=== PATIENT | male | born 1965 | race Native Hawaiian/Other Pacific Islander ===

== ENCOUNTER 2020-04-05 10:06 | Inpatient (IN) | payer BC ==
[~2020-04-05] VITALS: Ht 182.9 cm; Wt 123.3 kg
[2020-04-05] MEDS ORDERED: SODIUM CHLORIDE 0.9% 1,000 ML IV ONE ×2 (10:12)
[2020-04-05 10:37] LABS: Basophils # (auto) 0.1 10 ^3/uL (0-0.2); Basophils % (auto) 0.9 % (0.0-2.0); Eosinophils # (auto) 0.1 10 ^3/uL (0-0.8); Eosinophils % (auto) 2.2 % (0.0-7.0); Hematocrit 44.9 % (41.0-53.0); Hemoglobin 14.9 g/dL (13.5-17.5); Lymphocytes # (auto) 1.2 10 ^3/uL (0.4-5.4); Lymphocytes % (auto) 20.7 % (10.0-50.0); Mean Corpuscular Hemoglobin 29.9 pg (28.0-32.0); Mean Corpuscular Hgb Conc. 33.3 g/dL (32.0-36.0); Mean Corpuscular Volume 89.8 fL (80.0-100.0); Monocytes # (auto) 0.3 10 ^3/uL (0-1.3); Monocytes % (auto) 5.5 % (0.0-12.0); Neutrophils # (auto) 4.1 10 ^3/uL (1.6-8.6); Neutrophils % (auto) 70.7 % (37.0-80.0); Nucleated Red Blood Cells % 0.2 %; Platelet Count (auto) 180 10^3/uL (140-450); White Blood Cell 5.8 10^3/uL (4.4-10.8)
[2020-04-05 10:54] LABS: INR 1.07 (0.9-1.15); Partial Thromboplastin Time 24.8 sec (23.64-32.05)
[2020-04-05 10:59] LABS: Albumin 3.7 g/dL (3.4-5.0); Anion Gap 5 (5-15); Blood Urea Nitrogen 17 mg/dL (7-18); Calcium 8.7 mg/dL (8.5-10.1); Carbon Dioxide 23 mmol/L (21-32); Chloride 111 mmol/L (98-107); Glucose 130 mg/dL (74-106); Sodium 139 mmol/L (136-145)
[2020-04-05 11:05] LABS: Alanine Aminotransferase 32 U/L (16-61); Alkaline Phosphatase 81 U/L (45-117); Aspartate Aminotransferase 13 U/L (15-37); BUN/Creatinine Ratio 17.9; Bilirubin, Total 0.6 mg/dL (0.2-1.0); GFR African American 106 mL/min; GFR Non-African American 87 mL/min
[2020-04-05] MEDS ORDERED: ONDANSETRON HCL 4 MG/2 ML VIAL IV PRN (14:00)
[2020-04-05] MEDS ORDERED: NITROGLYCERIN 0.4 MG SL TAB SL PRN (14:00)
[2020-04-05] MEDS ORDERED: MORPHINE SULF INJ 2 MG/ML SYRINGE 1ML IV PRN ×2 (14:00)
[2020-04-05] MEDS ORDERED: ACETAMINOPHEN 500 MG TAB PO PRN (14:00)
[2020-04-05] MEDS ORDERED: HYDROcodone-ACET 5/325MG TAB PO PRN (14:00)
--- NOTE | 2020-04-05 14:55 | NUR ---
Telemetry admit from ER [facility] admitted to Telemetry unit. No call to alert RN that patient is coming to floor. No report received. Patient oriented to BENJA PIZANO RN primary RN, unit, room, bed, and unit policies regarding patient care and visiting hours. Patient now on continuous telemetry monitoring, tele box #[id number]. Patient weighed by bedscale and encouraged to call if they need something. All questions and concerns addressed, patient verbalized understanding.
[2020-04-05 15:15] VITALS: BP 122/64
--- NOTE | 2020-04-05 17:50 | NUR ---
Cardiology Consult Dr. Gonzalez at bedside discussing plan of care with patient and this RN.
--- NOTE | 2020-04-05 17:54 | NUR ---
IV insertion IV access obtained, via clean sterile technique by inserting 22 gauge catheter at left hand. IV secured properly. No trauma to site. Patient tolerated well.
--- NOTE | 2020-04-05 19:29 | NUR ---
Closing Shift Note Patient resting in bed. No distress noted. Report given. Will endorse care to the cage shift manager RN.
--- NOTE | 2020-04-05 20:00 | NUR ---
Opening Shift Note Assumed care of patient, awake and alert. No S/S of distress/SOB or pain. Instructed on POC and to call for assist PRN, will continue to monitor for changes Q1hr and PRN.
[2020-04-05 21:30] VITALS: BP 115/72
[2020-04-05] MEDS: CARVEDILOL 3.125 MG TAB PO SCH (21:58)
[2020-04-05] MEDS ORDERED: ATORVASTATIN 20 MG TAB PO SCH (22:00)
--- NOTE | 2020-04-05 22:00 | NUR ---
called for update, no password, transfer the call to the patient.
--- NOTE | 2020-04-06 07:13 | NUR ---
Care report given to Ronald Medeiros, and told to relay to Daniel regarding patient has 2 x episode of Heart rate of 24-30 for few seconds not sustained and goes back to normal heart rate, patient is asymptomatic.
--- NOTE | 2020-04-06 07:30 | NUR ---
Opening Shift Note Assuming care of patient at this time. Patient is awake and alert. Patient denies pain. Patient shows no signs or symptoms of distress or shortness of breath. Bed is locked and lowered with side rails up x2. Instructed patient on the plan of care for today and to call for assistance as needed. Call light within reach. Will continue to round hourly and as needed.
[2020-04-06 08:50] VITALS: BP 124/66
[2020-04-06] MEDS: CARVEDILOL 3.125 MG TAB PO SCH (09:16)
[2020-04-06] MEDS ORDERED: FAMOTIDINE 20 MG TAB PO SCH (10:00)
[2020-04-06] MEDS ORDERED: ASPirin 81 mg TAB PO SCH (10:00)
--- NOTE | 2020-04-06 11:45 | NUR ---
Biotronik Biotronik at bedside to adjust patient's setting. Setting is now [address] Thayer aware. Patient will be discharged.
--- NOTE | 2020-04-06 11:45 | NUR ---
Low Heart Rate Notified Dr. Thayer about patient's decrease in heart over the night per report. Dr. Thayer verbalized understanding. No new orders given. Patient's device has been adjusted this morning. Will discharge patient and instruct to follow-up with automation technician.
[2020-04-06 12:30] VITALS: BP 111/78
[2020-04-06 13:00] VITALS: BP 111/78
--- NOTE | 2020-04-06 13:15 | NUR ---
Discharge Discharge instructions given as ordered. Encourage to follow up with PMD as instructed. Patient given information for both Dr. Gonzalez and Dr. Vu, patient's primary recruitment coordinator. All questions and concerns addressed. Patient verbalized understanding. Medication reconciliation form completed and copy given to patient. IV removed with catheter intact, pressure dressing applied. Telemetry unit returned to ICU. Patient ambulated to lobby to wait for ride. Patient refused wheelchair at this time.
== END 2020-04-06 13:15 | disposition home or self-care (01) | DRG 309 ==
LOC: EDUNIT# 10:06 → EDBD 10:06 → ER 10:06 → TELE 10:07 → TELE-WESTW 15:47
PROVIDERS: ADMIT Nurse Practitioner Acute Care; ATTEND Family Medicine
PROC: 4B02XTZ Measurement of Cardiac Defibrillator, External Approach (ICD-10-PCS; principal; 2020-04-06)
DX: R00.1 Bradycardia, unspecified (principal); I24.9 Acute ischemic heart disease, unspecified; I50.22 Chronic systolic (congestive) heart failure; E66.9 Obesity, unspecified; E86.0 Dehydration; G93.0 Cerebral cysts; I11.0 Hypertensive heart disease with heart failure; I25.10 Atherosclerotic heart disease of native coronary artery without angina pectoris; K21.9 Gastro-esophageal reflux disease without esophagitis; E78.5 Hyperlipidemia, unspecified; E78.00 Pure hypercholesterolemia, unspecified; Z68.36 Body mass index [BMI] 36.0-36.9, adult; Z95.5 Presence of coronary angioplasty implant and graft; Z95.810 Presence of automatic (implantable) cardiac defibrillator
CPT/HCPCS: 36415; 70450; 71045; 80053; 84484; 85025; 85610; 85730; 86141; 93306; G0378